=== PATIENT | male | born 1985 | race American Indian/Alaskan Native ===

== ENCOUNTER 2019-04-17 00:31 | Emergency (ER) | payer SELFPAY ==
--- NOTE | 2019-04-17 01:01 | Emergency Department Report ---
HPI - General Chief Complaint: Overdose Time Seen by Provider: 04/17/19 00:37 - HPI HPI: [facility] The patient is a 33-year-old male presented with a chief complaint of methamphetamine abuse. Per EMS family called EMS because the patient uses methamphetamines and had abnormal behavior. The patient states his father saw him going up and down stairs. Patient states therapy will try to hurt him and taking his car. Patient states the same thing occurred the drivers of the ambulance tonight. He denies suicidal or homicidal ideation but admits to using methamphetamine earlier this evening. EMS reports family states this occurs monthly whenever the patient gets paid. Location: [See above] Duration: [See above] Quality: [See above] Severity: [See above] Modifying factors: [see above] Context: [see above] Mode of transportation: [not driving] ED Past Medical Hx - Past Medical History Hx Psychiatric Treatment: Yes (his cranial) - Surgical History Past Surgical History?: No - Family History Family history: no significant - Social History Smoking Status: Current Every Day Smoker (1/2 pack per day) Substance Use Type: Alcohol (occasional), Methamphetamines ED Review of Systems ROS: Stated complaint: JULIA/MH EVAL Other details as noted in HPI Comment: Unobtainable due to pts medical conditions Physical Exam - Physical Exam Physical Exam: GENERAL: The patient is well-developed well-nourished male sitting on a stretcher appearing anxious. [] HEENT: Normocephalic. Atraumatic. Extraocular motions are intact. Patient has moist mucous membranes. NECK: Supple. Trachea midline CHEST/LUNGS: Clear to auscultation. There is no respiratory distress noted. HEART/CARDIOVASCULAR: Regular. There is no tachycardia. There is no gallop rub or murmur. ABDOMEN: Abdomen is soft, nontender. Patient has normal bowel sounds. There is no abdominal distention. SKIN: There is no rash. There is no edema. There is no diaphoresis. NEURO: The patient is awake, and alert. Patient appears delusional state that there were people trying to kill him and taking his car. The patient is cooperative. The patient has no focal neurologic deficits. The patient has normal speech MUSCULOSKELETAL: There is no evidence of acute injury. ED Medical Decision Making - Lab Data Result diagrams: 04/17/19 00:59 04/17/19 00:59 Laboratory Tests 04/17/19 04/17/19 04/17/19 00:48 00:48 00:59 WBC 9.3 RBC 4.51 Hgb 13.4 Hct 39.5 MCV 87 MCH 30 MCHC 34 RDW 14.5 Plt Count 278 Lymph % (Auto) 9.1 L [place] % (Auto) 8.2 H Eos % (Auto) 0.2 Baso % (Auto) 0.5 Lymph # 0.9 L [place] # 0.8 Eos # 0.0 Baso # 0.0 Seg Neutrophils % 82.0 H Seg Neutrophils # 7.6 Sodium Potassium Chloride Carbon Dioxide Anion Gap BUN Creatinine Estimated GFR BUN/Creatinine Ratio Glucose Calcium Urine Color Yellow Urine Turbidity Slightly-cloudy Urine pH 5.0 Ur Specific [place] 1.029 Urine Protein 30 mg/dl Urine Glucose (UA) Neg Urine Ketones 20 Urine Blood Neg Urine Nitrite Neg Urine Bilirubin Neg Urine Urobilinogen < 2.0 Ur Leukocyte Esterase Neg Urine WBC (Auto) < 1.0 Urine RBC (Auto) < 1.0 Salicylates Urine Opiates Screen Presumptive negative Urine Methadone Screen Presumptive negative Acetaminophen Ur Barbiturates Screen Presumptive negative Ur Phencyclidine Scrn Presumptive negative U Benzodiazepines Scrn Presumptive negative Urine Cocaine Screen Presumptive negative U Marijuana (THC) Screen Presumptive negative Plasma/Serum Alcohol 04/17/19 04/17/19 04/17/19 00:59 00:59 00:59 WBC RBC Hgb Hct MCV MCH MCHC RDW Plt Count Lymph % (Auto) [place] % (Auto) Eos % (Auto) Baso % (Auto) Lymph # [place] # Eos # Baso # Seg Neutrophils % Seg Neutrophils # Sodium 140 Potassium 4.1 Chloride 102.6 Carbon Dioxide 22 Anion Gap 20 BUN 23 H Creatinine 1.2 Estimated GFR > 60 BUN/Creatinine Ratio 19 Glucose 72 L Calcium 10.0 Urine Color Urine Turbidity Urine pH Ur Specific [place] Urine Protein Urine Glucose (UA) Urine Ketones Urine Blood Urine Nitrite Urine Bilirubin Urine Urobilinogen Ur Leukocyte Esterase Urine WBC (Auto) Urine RBC (Auto) Salicylates < 0.3 L Urine Opiates Screen Urine Methadone Screen Acetaminophen < 5.0 L Ur Barbiturates Screen Ur Phencyclidine Scrn U Benzodiazepines Scrn Urine Cocaine Screen U Marijuana (THC) Screen Plasma/Serum Alcohol 04/17/19 00:59 WBC RBC Hgb Hct MCV MCH MCHC RDW Plt Count Lymph % (Auto) [place] % (Auto) Eos % (Auto) Baso % (Auto) Lymph # [place] # Eos # Baso # Seg Neutrophils % Seg Neutrophils # Sodium Potassium Chloride Carbon Dioxide Anion Gap BUN Creatinine Estimated GFR BUN/Creatinine Ratio Glucose Calcium Urine Color Urine Turbidity Urine pH Ur Specific [place] Urine Protein Urine Glucose (UA) Urine Ketones Urine Blood Urine Nitrite Urine Bilirubin Urine Urobilinogen Ur Leukocyte Esterase Urine WBC (Auto) Urine RBC (Auto) Salicylates Urine Opiates Screen Urine Methadone Screen Acetaminophen Ur Barbiturates Screen Ur Phencyclidine Scrn U Benzodiazepines Scrn Urine Cocaine Screen U Marijuana (THC) Screen Plasma/Serum Alcohol < 0.01 - Differential Diagnosis schizophrenia, methamphetamine abuse Critical care attestation.: If time is entered above; I have spent that time in minutes in the direct care of this critically ill patient, excluding procedure time. ED Disposition Clinical Impression: Schizophrenia, Drug abuse Disposition: [id number]/TX-65 PSY HOSP/PSY UNIT Is pt being admited?: No Does the pt Need Aspirin: No Condition: Stable Referrals: VALE TURCIOS MD [Primary Care Provider] - 3-5 Days Time of Disposition: 01:52 (awaiting acceptance)
[2019-04-17 01:11] LABS: Basophils % (Auto) 0.5 % (0.0-1.8); Eosinophils % (Auto) 0.2 % (0.0-4.3); Hematocrit 39.5 % (35.5-45.6); Hemoglobin 13.4 gm/dl (11.8-15.2); Lymphocytes # (Auto) 0.9 K/mm3 (1.2-5.4); Lymphocytes % (Auto) 9.1 % (13.4-35.0); Mean Corpuscular HGB Conc 34 % (32-34); Mean Corpuscular Volume 87 fl (84-94); Monocytes # (Auto) 0.8 K/mm3 (0.0-0.8); Monocytes % (Auto) 8.2 % (0.0-7.3); Platelet Count 278 K/mm3 (140-440); Red Blood Count 4.51 M/mm3 (3.65-5.03); Red Cell Distribution Width 14.5 % (13.2-15.2)
[2019-04-17 01:28] LABS: Bilirubin,Urine NEG (Negative); Blood,Urine NEG (Negative); Color,Urine Yellow (Yellow); RBC,Urine < 1.0 /HPF (0.0-6.0); Urobilinogen,Urine < 2.0 mg/dL (<2.0); WBC,Urine < 1.0 /HPF (0.0-6.0)
[2019-04-17 01:35] LABS: Benzodiazepines Screen,Urine PRESUMPTIVE NEGATIVE; Cannabinoid Screen,Urine PRESUMPTIVE NEGATIVE; Cocaine Screen,Urine PRESUMPTIVE NEGATIVE; Methadone Screen,Urine PRESUMPTIVE NEGATIVE; Opiate Screen,Urine PRESUMPTIVE NEGATIVE
[2019-04-17 01:36] LABS: BUN/Creatinine Ratio 19; Blood Urea Nitrogen 23 mg/dL (9-20); Hemolysis Index 7
[2019-04-17 01:53] LABS: Amphetamine Screen,Urine PRESUMPTIVE POSITIVE
[2019-04-17] MEDS ORDERED: HALDOL IM PRN (04:29)
[2019-04-17] MEDS ORDERED: BENADRYL IM PRN (04:29)
[2019-04-17] MEDS: ATIVAN IM PRN (04:52)
--- NOTE | 2019-04-17 10:36 | Consultation ---
History of Present Illness - Reason for Consult Consult date: 04/17/19 Reason for consult: Mental Health Evaluation Requesting physician: KAL HIGGINS - Chief Complaint Chief complaint: 'The the patient refused to cooperate" - History of Present Psychiatric Illness 33-year-old AA male who presented to the ER for methamphetamine abuse per the record. Today the patient refused to cooperate during the assessment. Several attempts was made to engage the patient, but was unsuccessful. No gestures of SI/HI's. . Medications and Allergies Allergies Allergy/AdvReac Type Severity Reaction Status Date / Time No Known Allergies Allergy Unverified 04/17/19 00:57 Home Medications Medication Instructions Recorded Confirmed Last Taken Type Unobtainable 04/17/19 04/17/19 Unknown History Active Meds: Active Medications Diphenhydramine HCl (Benadryl) 50 mg IM Q6H PRN PRN Reason: Agitation Last Admin: 04/17/19 04:52 Dose: 50 mg Documented by: Haloperidol Lactate (Haldol) 10 mg IM Q8H PRN PRN Reason: Agitation Last Admin: 04/17/19 04:52 Dose: 10 mg Documented by: Lorazepam (Ativan) 2 mg IM Q8H PRN PRN Reason: Agitation Last Admin: 04/17/19 04:52 Dose: 2 mg Documented by: Past psychiatric history - Past Medical History Past Medical History: other (Unable to obtain ) Past Surgical History: Other (Unable to obtain ) - past Psychiatric treatment and history psychiatric treatment history: Unable to obtain a psy hx and fam psy hx. - Social History Social history: lives with family Mental Status Exam - Vital signs Last Vital Signs Temp 98.4 F 04/17/19 05:59 Pulse 84 04/17/19 05:59 Resp 18 04/17/19 05:59 BP 124/67 04/17/19 05:59 Pulse Ox 100 04/17/19 05:59 - Exam Narrative exam: Unable to complete the MSE because the patient refused to cooperate. Results Result Diagrams: 04/17/19 00:59 04/17/19 00:59 Abnormal lab results 04/17/19 04/17/19 04/17/19 Range/Units 00:59 00:59 00:59 Lymph % (Auto) 9.1 L (13.4-35.0) % [place] % (Auto) 8.2 H (0.0-7.3) % Lymph # 0.9 L (1.2-5.4) K/mm3 Seg Neutrophils % 82.0 H (40.0-70.0) % BUN 23 H (9-20) mg/dL Glucose 72 L (75-100) mg/dL Salicylates < 0.3 L (2.8-20.0) mg/dL Acetaminophen (10.0-30.0) ug/mL 04/17/19 Range/Units 00:59 Lymph % (Auto) (13.4-35.0) % [place] % (Auto) (0.0-7.3) % Lymph # (1.2-5.4) K/mm3 Seg Neutrophils % (40.0-70.0) % BUN (9-20) mg/dL Glucose (75-100) mg/dL Salicylates (2.8-20.0) mg/dL Acetaminophen < 5.0 L (10.0-30.0) ug/mL All other labs normal. Assessment and Plan Assessment and plan: Impression: Today the patient refused to cooperate during the assessment. The patient was positive for amphetamines. Recommendation/Plan: Attempt to reassess the patient in 24 hours[address] Will staff with Dr Marissa Lowe.
--- NOTE | 2019-04-18 11:34 | Progress Note ---
Subjective - Reason for Consult Consult date: 04/18/19 Reason for consult: Psychiatry Follow-up - Chief Complaint Chief complaint: "Let me go home" 33-year-old AA male who presented to the ER for methamphetamine abuse per the record. Today the patient was somewhat disorganized during the assessment. Throughout t he interview, the patient was hyper verbal and had to be redirected to keep him on topic. He was asked about his mental health, he stated, 'I take Zyprexa for schizophrenia." After engaging the patient for several minutes, he attempted to elope. No gestures of SI/HI's . Mental Status Exam - Vital signs Last Vital Signs Temp 98.2 F 04/18/19 08:58 Pulse 115 H 04/18/19 08:58 Resp 18 04/18/19 08:58 BP 123/74 04/18/19 08:58 Pulse Ox 98 04/18/19 08:58 - Exam Narrative exam: MSE: Appearance: in hospital attire Behavior: regular eye contact Speech: regular rate and tone Mood: irritable Affect: congruent to mood Thought Process: somewhat disorganized Thought Content: no gestures of SI/HI's Motor Activity: ambulatory Cognition: A/O x3 Insight: poor Judgment: poor Assessment and Plan Impression: Substance Induced Psychosis. Substance Use DO (amphetamines). Today the patient was somewhat disorganized during the assessment. DDx: R/O Schizophrenia, Bipolar DO with psychosis Recommendation/Plan: Continue 1013 and start Zyprexa 5 mg PO HS for psychosis. Attempted to discuss possible metabolic side effects of Zyprexa with the patient. Baseline A1c/Lipid Panel ordered in the AM. Staffed with Dr Marissa Lowe.
[2019-04-19 07:54] LABS: Chol/HDL Ratio 4.32 %
[2019-04-19] MEDS: ATIVAN IM PRN (11:14)
--- NOTE | 2019-04-19 13:40 | Progress Note ---
Subjective - Reason for Consult Consult date: 04/19/19 Reason for consult: Psychiatric Follow-up Evaluation - Chief Complaint Chief complaint: "I feel better." Patient is a 33-year-old AA male who presented to the ER for methamphetamine abuse per the record. Today the patient is calm and cooperative during the assessment. Patient appears very fatigue and tired. Patient mood is somewhat irritable. Appears less disorganized and hyper verbal than previous days. Patient is very guarded and evasive during the assessment. He denies SI/HI's, A/VH's, and delusions. Patient is compliant with medication. He denies any side effects. Mental Status Exam - Vital signs Last Vital Signs Temp 97.7 F 04/19/19 08:31 Pulse 92 H 04/19/19 08:31 Resp 18 04/19/19 08:31 BP 120/70 04/19/19 08:31 Pulse Ox 98 04/19/19 08:31 - Exam Narrative exam: Mental Status Exam Appearance: in hospital attire, guarded Behavior: regular eye contact Speech: regular rate and tone Mood: irritable, anxious Affect: congruent to mood Thought Process: somewhat disorganized Thought Content: no gestures of SI/HI's; +/- A/VH's and delusions Motor Activity: ambulatory Cognition: A/O x 3 Insight: poor Judgment: poor Assessment and Plan Impression: Substance Induced Psychosis. Substance Use DO (amphetamines). Today the patient is calm and cooperative during the assessment. Patient mood somewhat irritable with decrease disorganize thought process. Patient very guarded/evasive. He denies SI/HI's, A/VH's, and delusions. DDx: R/O Schizophrenia, Bipolar DO with psychosis Recommendation/Plan: 1. Continue 1013. Will reevaluate 1013 in 24 hours. 2. Continue Zyprexa 5 mg PO HS for psychosis. Attempted to discuss possible metabolic side effects of Zyprexa with the patient. Baseline A1c/Lipid Panel ordered in the AM. Will staff with Dr. Marissa Lowe.
[2019-04-20 08:05] VITALS: BP 101/68
--- NOTE | 2019-04-20 08:50 | Progress Note ---
Subjective - Reason for Consult Consult date: 04/20/19 Reason for consult: Psychiatry Follow-up - Chief Complaint Chief complaint: "I need to make decisions"" Patient is a 33-year-old AA male who presented to the ER for methamphetamine abuse per the record. Today the patient was calm and cooperative during the assessment. He stated that his issues stem from his "drug use. " He stated that he plan to follow up with [facility] for outpatient psy/rehab services once discharged. He denies SI/HI's and AVH's. He denies any side effects from his medication. Mental Status Exam - Vital signs Last Vital Signs Temp 98.0 F 04/20/19 07:00 Pulse 87 04/20/19 07:00 Resp 18 04/20/19 07:00 BP 101/68 04/20/19 07:00 Pulse Ox 100 04/20/19 07:00 - Exam Narrative exam: MSE: Appearance: calm, cooperative Behavior: regular eye contact Speech: regular rate and tone Mood: "better" Affect: congruent to mood Thought Process: more organized Thought Content: denies SI/HI's and AVH's Motor Activity: ambulatory Cognition: A/O x3 Insight: fair Judgment: fair Assessment and Plan Impression: Substance Induced Psychosis. Substance Use DO (amphetamines). Today the patient was calm and cooperative during the assessment. The patient's psychosis has resolved. DDx: R/O Schizophrenia, Bipolar DO with psychosis Recommendation/Plan: Rescind 1013 and continue Zyprexa 5 mg PO HS. Discussed possible metabolic side effects of Zyprexa with the patient, he verbalized understanding. Discussed the importance to abstain from recreational drug use, he verbalized understanding. Dispo: The patient cam follow up with [facility] for outpatient psy/rehab services. Staffed with Dr Marissa Lowe.
--- NOTE | 2019-04-20 09:50 | Emergency Department Report ---
Blank Doc - Documentation Documentation: I was asked by the psychiatric team to provide discharge paperwork for this pa kehinde, after they have rescinded his 1013. It appears that the patient originally was here for methamphetamine abuse causing psychosis and he arrived here on 04/17/19. At the time of discharge, I have seen the patient and he does appear calm and appropriate. He has been instructed to avoid any further methamphetamine or illicit drug use. He has been given a referral for the [facility] facility. And he has been instructed to return to the emergency Department with any worsening of his symptoms or any acute distress.
== END 2019-04-20 10:00 | disposition home or self-care (01) ==
LOC: EEVIPCON 00:31 → ED 00:31
DX: F15.10 Other stimulant abuse, uncomplicated (principal)
CPT/HCPCS: 36415; 80048; 80061; 80307; 81001; 83036; 85025; 96372; 99285; J1200; J1630; J2060; 80320; G0480